=== PATIENT | male | born 1975 | race Two or more races ===

== ENCOUNTER 2020-10-29 14:26 | Emergency (ER) | payer OTHER ==
[~2020-10-29] VITALS: Ht 165.1 cm; Wt 68.0 kg
[2020-10-29 14:27] VITALS: BP 139/94
== END 2020-10-29 15:48 | disposition left against medical advice (07) ==
LOC: ER 14:26
DX: M54.5 Low back pain (principal); Z53.21 Procedure and treatment not carried out due to patient leaving prior to being seen by health care provider